=== PATIENT | male | born 1985 | race American Indian/Alaskan Native ===

== ENCOUNTER 2017-09-09 11:38 | Emergency (ER) | payer BC ==
[2017-09-09 11:52] VITALS: BP 137/86
--- NOTE | 2017-09-09 13:38 | Emergency Department Report ---
Nanci Doc - Documentation Documentation: Patient is a 31-year-old -[place] Citizen male who states for the past several days he's has some burning sensations to the eyes. Patient initially thought that he has had allergies he started using Visine which has not helped with the patient states he looked closer in the mirror and feels as though his eyes are turning yellow. Patient also has a sharp epigastric discomfort that is intermittent as well. Brief physical exam the patient does have some scleral injection and some hyperemia to the eyes. There is the slightest yellow tinged halo around the iris. This finding coupled with the fact that the patient is having some epigastric discomfort although I believe the patient has allergic rhinitis and possibly GERD I am going to check chemistries on the patient. Patient V reassessment GERMAN after laboratory studies are performed.
[2017-09-09 14:50] LABS: Alanine Aminotransferase 37 units/L (7-56); Albumin 4.8 g/dL (3.9-5); BUN/Creatinine Ratio 11; Blood Urea Nitrogen 11 mg/dL (9-20); Calcium 9.9 mg/dL (8.4-10.2); Hemolysis Index 0; Lipase 21 units/L (13-60)
--- NOTE | 2017-09-09 15:27 | Emergency Department Report ---
ED General Adult HPI - General Chief complaint: Eye Problems Stated complaint: YELLOW EYES BURNING IN CHEST Time Seen by Provider: 09/09/17 13:22 Source: patient Mode of arrival: Ambulatory Limitations: No Limitations - History of Present Illness Initial comments: Patient is a 31-year-old -[place] male who states for the past several days he's has some burning sensations to the eyes. Patient initially thought that he has had allergies he started using Visine which has not helped with the patient states he looked closer in the mirror and feels as though his eyes are turning yellow. Patient also has a sharp epigastric discomfort that is intermittent as well. Brief physical exam the patient does have some scleral injection and some hyperemia to the eyes. There is the slightest yellow tinged halo around the iris. This finding coupled with the fact that the patient is having some epigastric discomfort although I believe the patient has allergic rhinitis and possibly GERD I am going to check chemistries on the patient. Patient does admit to having acid reflux that naidu in his chest he'll wake up in the morning with little difficulty or discomfort in his throat sometimes foul taste in his mouth. -: days(s) (3) Location: abdomen (epigastric) Radiation: non-radiation Quality: burning Consistency: intermittent Improves with: none Worsens with: none Associated Symptoms: denies other symptoms Treatments Prior to Arrival: other (Visine) - Related Data Previous Rx's Medication Instructions Recorded Last Taken Type Ketotifen Fumarate [Zaditor] 1 drop OP QDAY #1 bottle 09/09/17 Unknown Rx Ranitidine HCl [Zantac 150 MG TAB] 150 mg PO BID PRN #60 tablet 09/09/17 Unknown Rx Allergies Allergy/AdvReac Type Severity Reaction Status Date / Time No Known Allergies Allergy Unverified 09/09/17 11:48 ED Review of Systems ROS: Stated complaint: YELLOW EYES BURNING IN CHEST Other details as noted in HPI Eyes: other (bilateral eye irritation times several days) ENT: denies: ear pain, throat pain Respiratory: denies: cough, shortness of breath, wheezing Cardiovascular: denies: chest pain, palpitations ED Past Medical Hx - Past Medical History Previous Medical History?: No - Surgical History Past Surgical History?: No - Social History Smoking Status: Former Smoker Substance Use Type: Alcohol, Marijuana - Medications Home Medications: Home Medications Medication Instructions Recorded Confirmed Last Taken Type Ketotifen Fumarate [Zaditor] 1 drop OP QDAY #1 bottle 09/09/17 Unknown Rx Ranitidine HCl [Zantac 150 MG TAB] 150 mg PO BID PRN #60 tablet 09/09/17 Unknown Rx ED Physical Exam - General Limitations: No Limitations General appearance: alert, in no apparent distress - Head Head exam: Present: atraumatic, normocephalic - Eye Eye exam: Present: EOMI, conjunctival injection. Absent: periorbital swelling, periorbital tenderness Pupils: Present: normal accommodation - ENT ENT exam: Present: mucous membranes moist - Neck Neck exam: Present: normal inspection - Respiratory Respiratory exam: Present: normal lung sounds bilaterally. Absent: respiratory distress - Cardiovascular Cardiovascular Exam: Present: regular rate, normal rhythm. Absent: systolic murmur, diastolic murmur, rubs, gallop - GI/Abdominal GI/Abdominal exam: Present: soft, normal bowel sounds - Rectal Rectal exam: Present: deferred - Back Exam Back exam: Present: normal inspection - Neurological Exam Neurological exam: Present: alert, oriented X3 - Psychiatric Psychiatric exam: Present: normal affect, normal mood - Skin Skin exam: Present: warm, dry, intact, normal color. Absent: rash ED Course Vital Signs 09/09/17 11:48 Temperature 98.7 F Pulse Rate 84 Respiratory 20 Rate Blood Pressure 137/86 O2 Sat by Pulse 99 Oximetry ED Medical Decision Making - Lab Data Result diagrams: 09/09/17 14:06 - Medical Decision Making Patient's been evaluated with his provider as well as Dr. Cole. Performed a use CMP which came back normal. I discussed the patient is is most likely allergic conjunctivitis R Pl. patient on Zaditor 1 drop to each eye daily as well as pain on Zantac for epigastric reflux. Discussed the patient that he can also have allergic gastritis that I'll place him on Zantac 150 mg by mouth twice a day. Discussed measures of preventing acid reflux such as eating and laying down immediately should wait at least 2 hours. Avoid caffeine drinks alcohol spicy foods tomato paste tomato products. Patient verbalized understanding Critical care attestation.: If time is entered above; I have spent that time in minutes in the direct care of this critically ill patient, excluding procedure time. ED Disposition Clinical Impression: Allergic conjunctivitis of both eyes Acid reflux Qualifiers: Esophagitis presence: without esophagitis Qualified Code(s): K21.9 - Gastro- esophageal reflux disease without esophagitis Disposition: DC- TO HOME OR SELFCARE Is pt being admited?: No Does the pt Need Aspirin: No Condition: Stable Instructions: Allergic Esophagitis (ED) Additional Instructions: Please use eyedrops as prescribed. Take Zantac as prescribed for epigastric discomfort. Follow up with her primary care provider if symptoms persist or gets worse. Prescriptions: Ketotifen Fumarate [Zaditor] 1 drop OP QDAY #1 bottle Ranitidine HCl [Zantac 150 MG TAB] 150 mg PO BID PRN #60 tablet PRN Reason: Dyspepsia Referrals: [facility] [Provider Group] - 3-5 Days Forms: Work/School Release Form(ED)
== END 2017-09-09 15:49 | disposition home or self-care (01) ==
LOC: ED 11:38
DX: H10.13 Acute atopic conjunctivitis, bilateral (principal); K21.9 Gastro-esophageal reflux disease without esophagitis; Z87.891 Personal history of nicotine dependence
CPT/HCPCS: 36415; 80053; 83690; 99283